=== PATIENT | female | born 1995 | race Caucasian/White ===

== ENCOUNTER 2024-04-12 18:56 | Emergency (ER) | payer BC, SELFPAY ==
[2024-04-12 18:58] VITALS: BP 145/107; PULSE 95; RESP 18; TEMP 36.8; O2SAT 96
--- NOTE | 2024-04-12 19:12 | ED.ALLEREA ---
HPI - Allergic Reaction General Chief complaint: Allergic Reaction Stated complaint: allergic reaction Time Seen by Provider: 04/12/24 19:11 Source: patient and family Mode of arrival: ambulatory Limitations: no limitations History of Present Illness HPI narrative: 28 years old white female came to the emergency room by private car because itchy throat and body rash mainly on the face and upper extremities got worse hours ago. Patient have long history of allergy to a lot of stuff, been managed by license and permit specialist, last time was seen him 1 month ago scheduled for allergy shots next week, [facility]. Patient is telling me that she been having allergic reaction with skin rash intermittently for over 1 year. Was diagnosis of COVID over 1 month ago and the skin rash got worse. Still comes and goes but the baseline having rash all the time. Patient have history of adrenal insufficiency and currently on hydrocortisone 50 mg once a day. Patient have EpiPen at home which is reluctant to use it because triggered V-tach in the past. Was told by her license and permit specialist to use it only if she could not breathe. Patient have Claritin at home once a day, had Benadryl 50 mg 6 hour prior to arrival. She denied difficulty breathing or swallowing. She denies swelling of the tongue or lips. Related Data Home Medications Medication Instructions Recorded Confirmed diphenhydramine HCl 50 mg capsule 50 mg PO HS PRN Allergic Reaction 04/12/24 04/12/24 famotidine 40 mg tablet (Pepcid) 40 mg PO BID 04/12/24 04/12/24 hydrocortisone 5 mg tablet See Rx Instructions .Route .COMPLEX 04/12/24 04/12/24 hydromorphone 2 mg tablet 2 mg PO Q6H 04/12/24 04/12/24 (Dilaudid) isosorbide mononitrate 30 mg 30 mg PO DAILY 04/12/24 04/12/24 tablet,extended release 24 hr ivabradine 7.5 mg tablet 7.5 mg PO BID 04/12/24 04/12/24 ketotifen fumarate 2 mg PO BID 04/12/24 04/12/24 loratadine 10 mg tablet (Claritin) 20 mg PO DAILY 04/12/24 04/12/24 montelukast 10 mg tablet 10 mg PO DAILY 04/12/24 04/12/24 (Singulair) norethindrone (contraceptive) 0.35 0.35 mg PO DAILY 04/12/24 04/12/24 mg tablet rivaroxaban 20 mg tablet (Xarelto) 20 mg PO DAILY 04/12/24 04/12/24 Allergies Allergy/AdvReac Type Severity Reaction Status Date / Time acetaminophen [From [place]] Allergy Anaphylaxis Verified 04/12/24 19:01 amoxicillin Allergy Anaphylaxis Verified 04/12/24 19:01 dicyclomine [From [place]] Allergy Anaphylaxis Verified 04/12/24 19:01 diltiazem Allergy Anaphylaxis Verified 04/12/24 19:01 Gadolinium-Containing Allergy Anaphylaxis Verified 04/12/24 19:01 Contrast Medi haloperidol [From Haldol] Allergy Anaphylaxis Verified 04/12/24 19:01 hydrocodone [From [place]] Allergy Anaphylaxis Verified 04/12/24 19:01 Iodinated Contrast Media Allergy Anaphylaxis Verified 04/12/24 19:01 iron Allergy Anaphylaxis Verified 04/12/24 19:01 ketorolac Allergy Anaphylaxis Verified 04/12/24 19:01 metoclopramide [From Reglan] Allergy Anaphylaxis Verified 04/12/24 19:01 nitrofurantoin Allergy Anaphylaxis Verified 04/12/24 19:01 orphenadrine Allergy Anaphylaxis Verified 04/12/24 19:01 propranolol Allergy Anaphylaxis Verified 04/12/24 19:01 sulfamethoxazole Allergy Anaphylaxis Verified 04/12/24 19:01 [From Bactrim] trimethoprim [From Bactrim] Allergy Anaphylaxis Verified 04/12/24 19:01 pink dye Allergy Anaphylaxis Uncoded 04/12/24 19:01 Review of Systems Review of Systems: All systems reviewed & are unremarkable except as noted in HPI and below Exam Narrative: General appearance: Well-developed, well-nourished, cushinoid Skin: Papular rash on the face and forearms, scattered bruises on the forearm Head: Normocephalic, nontraumatic Eyes: Clear conjunctiva ENT: Oropharynx normal, ears normal, nose normal Neck: Supple, nontender Chest and respiratory: Airway patent, no respiratory distress, no accessory muscle use Heart: Regular rate/rhythm Abdomen: Soft, nontender, no organomegaly,
--- NOTE | 2024-04-12 19:18 | PC.NURSE ---
patient states i have those meds at home. I will just take them when I get home. And I cant take the oral benadryl. I am allergic to the [place] dye on the capsule
== END 2024-04-12 19:25 | disposition home or self-care (01) ==
PROVIDERS: Emergency Provider Emergency Medicine
DX: T78.40XA Allergy, unspecified, initial encounter (principal); Z79.899 Other long term (current) drug therapy; Z79.891 Long term (current) use of opiate analgesic; Z79.01 Long term (current) use of anticoagulants
CPT/HCPCS: 99283